=== PATIENT | male | born 1965 | race Two or more races ===

== ENCOUNTER 2025-07-20 03:58 | Emergency (ER) | payer SELFPAY ==
[2025-07-20 03:59] VITALS: BP 165/98; PULSE 115; RESP 22; TEMP 36.7; O2SAT 95
[2025-07-20 04:00] VITALS: BMI 60.8
--- NOTE | 2025-07-20 04:12 | EDNOTE_ITS ---
ED Extremity Problem RME/HPI General Chief complaint: Skin/Abscess/Foreign Body Stated complaint: PAIN IN RIGHT LEG, RED AND SWOLLEN Time Seen by Provider: 07/20/25 04:19 Arrival date/time: 07/20/25 03:58 RME / HPI RME / HPI Narrative: See MDM for Dr. Conde's HPI Documentation. Related Data Previous Rx's ?Medication ?Instructions ?Recorded lisinopril 40 mg tablet 40 mg PO QDAY #30 tabs 11/02 metformin 500 mg tablet 500 mg PO BID #60 tabs 11/02 hydroxyzine HCl 50 mg tablet 50 mg PO Q6H PRN anxiety #20 tabs 11/11/23 Allergies Allergy/AdvReac Type Severity Reaction Status Date / Time No Known Allergies Allergy Verified 07/20/25 03:59 Review of Systems Review of Systems Systems Reviewed: All systems reviewed, normal except as documented Past Medical History Past Medical History CARDIAC: Positive Hypertension ENDOCRINE: Positive Diabetes Mellitus Type 2 PSYCHO/SOCIAL: Positive Recreational Drug Use Social History SUBSTANCE USE: marijuana ED Exam Narrative Physical exam: See [facility] for Dr. Conde's Physical Exam Documentation. Course Quality Measures none Orders Category Date Time Status CT Screening NOW Care 07/20/25 04:21 Active EKG (ED ONLY) *Do not use* NOW Care 07/20/25 04:20 Completed Saline [Insert IV] NOW Care 07/20/25 04:[address] angio chest Stat Exams 07/20/25 04:21 Ordered EKG (ED Only) Stat Exams 07/20/25 04:20 Draft US venous doppler LE BI Stat Exams 07/20/25 04:21 Ordered XR chest 1V portable Stat Exams 07/20/25 04:21 Taken Alcohol, Blood Medical Stat Lab 07/20/25 04:43 Ordered BNP [B-Type Natriuretic Peptide] Stat Lab 07/20/25 04:33 Received Bilirubin,Direct Stat Lab 07/20/25 04:33 Received CBC Stat Lab 07/20/25 04:33 Received CK [Creatine Kinase] Stat Lab 07/20/25 04:33 Received CMP [Comprehensive Metabolic Panel] Stat Lab 07/20/25 04:33 Received CRP [C-Reactive Protein] Stat Lab 07/20/25 04:33 Received D-Dimer Stat Lab 07/20/25 04:33 Received Drug Screen,Urine Stat Lab 07/20/25 04:43 Ordered ESR [Sed Rate (ESR)] Stat Lab 07/20/25 04:33 Received Hemoglobin A1C [Glycohemoglobin w (eAG)] Stat Lab 07/20/25 04:33 Received Magnesium Stat Lab 07/20/25 04:33 Received PT [Prothrombin Time with INR] Stat Lab 07/20/25 04:33 Received PTT [Partial Thromboplastin Time] Stat Lab 07/20/25 04:33 Received Procalcitonin Stat Lab 07/20/25 04:33 Received TSH [Thyroid Stimulating Hormone] Stat Lab 07/20/25 04:33 Received Troponin I Stat Lab 07/20/25 04:33 Received UA, C/S IF [Urinalysis, C/S if Indicated] Stat Lab 07/20/25 04:43 Ordered VBG [Venous Blood Gas] Stat Lab 07/20/25 04:33 Received Metoprolol Tartrate [Lopressor] Med 07/20/25 04:19 Discontinued 100 mg PO X1 ONE Vital Signs Vital signs: Vital Signs Temperature 98.1 F 07/20/25 03:59 Pulse Rate 115 H 07/20/25 03:59 Respiratory Rate 22 H 07/20/25 03:59 Blood Pressure 165/98 H 07/20/25 03:59 Pulse Oximetry (%) 95 07/20/25 03:59 Oxygen Delivery Method Room Air 07/20/25 03:59 Extremity Problem MDM Narrative MDM Narrative:: This section includes all my notes and documentations, including HPI, PE, and ED course. Hai Conde MD HPI: 60 y/o male with Hx of HTN and Type II DM (no meds for a month) here with a week history of right lower leg pain and swelling and redness and warmth. No recent injury. He also reports more shortness of breath with exertion. No chest pain. No headache or dizziness. No palpitations. No unusual cough. No fever or chills. No other complaints. ROS: All negative except as documented in HPI. Physical Exam: General: Alert and oriented. No acute distress when remaining still. High BP noted. Eyes: Conjunctivae and lids clear. ENT: No nasal congestion. Neck: Supple. No JVD. Heart: Tachycardia with regular rhythm Lungs: No respiratory distress. Decreased air movement. No significant rhonchi, wheezing, rales. Abdomen: Soft and nontender. Legs: Right lower leg edema/erythema/calor/tenderness noted. Skin: Warm and dry. Neuro: Alert and oriented X 3. I ordered oral metoprolol 100 mg and diagnostic tests. At 6 AM on 07/20/2025, the care of the patient was transferred to Dr. Sanchez. Hai Conde MD Patient data External records reviewed:: [facility] previous records (Reviewed prior ED records from 06/06/24. Patient was seen for Cellulitis of leg.) Clinical information provided by:: patient Social determinants that could affect healthcare access:: substance use (Marijuana) Patient has the following chronic illnesses:: HTN, Type II DM, Recreational Drug Use How is presenting disease/condition affected by chronic disease/condition?: exacerbated by Evaluation data The following diagnostics were reviewed and interpreted by me:: lab results, radiology exam(s) and EKG tracing(s) (My interpretation of the EKG is: Sinus tachycardia (111 bpm) with nonspecific ST-T changes. Hai Conde MD) Lab and/or radiology exams considered but not ordered:: None Interpretation Summary: Complete diagnostic tests are pending. Medications / Prescriptions Medications or Prescriptions considered but not ordered:: None Medication administrations:: Medication Administration History Discontinued Medications Metoprolol Tartrate (Metoprolol Tartrate 25 Mg Tablet) 100 mg PO X1 ONE Stop: 07/20/25 04:20 I ordered oral metoprolol 100 mg. Consultations Consultation(s) initiated? (list below): No Diagnosis Extremity Problem Differential Diagnosis: cellulitis, superficial thrombophlebitis, lower extremity edema, deep vein thrombosis of lower extremity and other (PE) Most likely diagnosis given after review of the tests above:: Complete diagnostic tests are pending. Admission Indicated Admission indicated?: not indicated Explain why admission is indicated or not indicated:: Complete diagnostic tests are pending. Admission Request Was there a request for admission?: No Disposition Plan Disposition Plan: other (specify) ( At 6 AM on 07/20/2025, the care of the patient was transferred to Dr. Sanchez.) Discharge Plan Prescriptions/Referrals Prescriptions/Med Rec: No Action lisinopril 40 mg tablet 40 mg PO QDAY Qty: 30 0RF metformin 500 mg tablet 500 mg PO BID Qty: 60 0RF hydroxyzine HCl 50 mg tablet 50 mg PO Q6H PRN (Reason: anxiety) Qty: 20 0RF Problem List Clinical Impression: Pain in right lower leg, Shortness of breath, Tachycardia, Hypertension Patient/Caregiver Discharge Instructions Print Language: Italian
--- NOTE | 2025-07-20 04:20 | EKG_ITS ---
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
--- NOTE | 2025-07-20 04:21 | XR_ITS ---
EXAMINATION: PA chest single view TECHNIQUE: Upright PA chest single view Date and time: July 20, 2025, 0421 hours, comparison 06/06/2024 INDICATIONS: Shortness of breath today. FINDINGS: Minimal prominence left ventricle Mild parenchymal disease in the left lower lung zone obscuring detail left cardiac contour Right lung clear Mild prominence pulmonary vasculature IMPRESSION: Mild opacity obscuring detail of the left cardiac contour, differential would include scarring versus pneumonia in the lingular segment left upper lobe, consider lateral chest view follow-up
[2025-07-20 04:42] LABS: Base Excess, Venous 5 (-3-3); O2 Saturation, Venous 69 % (96-97); PCO2, Venous 48 mmHg (36-56); PO2, Venous 34 mmHg (15-58); pH, Venous 7.42 (7.33-7.66)
[2025-07-20 04:43] LABS: Basophils # (Auto) 0.1 Thou/mm3 (0.0-0.2); Basophils % (Auto) 1 % (0-2.5); Eosinophils # (Auto) 0.2 Thou/mm3 (0.0-0.5); Eosinophils % (Auto) 3 % (0-10); Hematocrit 45.7 % (41.0-53.0); Hemoglobin 15.4 g/dL (13.5-16.0); Immature Granulocytes Auto 0.02 Thou/mm3 (0.00-0.00); Lymphocytes # (Auto) 2.3 Thou/mm3 (1.0-4.8); Lymphocytes % (Auto) 31 % (10-50); Mean Corpuscular HGB Conc 33.7 g/dl (31.0-37.0); Mean Corpuscular Hemoglobin 29.7 pg (25.0-35.0); Mean Corpuscular Volume 88 fL (80-100); Monocytes # (Auto) 0.5 Thou/mm3 (0.0-0.8); Monocytes % (Auto) 7 % (0-12); Neutrophils # (Auto) 4.4 Thou/mm3 (1.8-7.7); Neutrophils % (Auto) 59 % (37-80); Nucleated Red Blood Cell # 0.00 Thou/mm3 (0.00-0.00); Nucleated Red Blood Cell % 0 /100 WBC (0); Platelet Count 226 Thou/mm3 (140-440); RDW Standard Deviation 42.1 fL (35.1-43.9); Red Blood Count 5.19 Miln/mm3 (4.50-5.90); White Blood Count 7.5 Thou/mm3 (3.8-10.6)
[2025-07-20 04:44] VITALS: BP 171/103; PULSE 110
[2025-07-20] MEDS: METOPROLOL TARTRATE 25 MG TABLET 100 MG PO (04:44)
[2025-07-20 04:51] LABS: Sed Rate (ESR) 30 mm/hr (0-20)
[2025-07-20 04:58] LABS: Glucose Estimated Average 212 mg/dL (80-131); Hemoglobin A1C 9.0 % Hgb (4.8-6.0); INR 1.0 (0.9-1.3); Partial Thromboplastin Time 25.9 Seconds (22.0-36.0); Prothrombin Time 10.3 Seconds (9.0-12.2)
[2025-07-20 05:00] LABS: B-Type Natriuretic Peptide 20 pg/mL (0-100)
[2025-07-20 05:01] LABS: D-Dimer < 250 ng/mL (<600)
--- NOTE | 2025-07-20 05:03 | XR_ITS ---
Examination: Duplex scan of the lower extremity, unilateral right Date and time of exam: July 20, 2025, 0504 hours INDICATIONS: Right leg swelling and edema this week Technique: Duplex scan of the extremity veins using B-mode/grayscale imaging and Doppler spectral analysis and color flow Attention is directed to internal echogenicity, compression and augmentation involving these veins, color flow assessment, spectral analysis Findings: Major deep venous structures in the extremity demonstrate normal course and caliber. There is no evidence of deep vein thrombosis. Normal color flow and spectral analysis Impression: Negative for DVT..
[2025-07-20 05:07] LABS: Alanine Aminotransferase 17 U/L (10-49); Albumin, Serum 4.7 gm/dL (3.5-5.0); Albumin/Globulin Ratio 1.9 (1.2-2.2); Alkaline Phosphatase 111 U/L (46-116); Anion Gap 7 (7-16); Aspartate Amino Transferase 18 U/L (0-34); BUN/Creatinine Ratio 13 Ratio (12-20); Bilirubin,Direct 0.3 mg/dL (0.0-0.3); Bilirubin,Total 0.9 mg/dL (0.3-1.2); Blood Urea Nitrogen 12 mg/dL (9-23); C-Reactive Protein 1.0 mg/dL (0.0-0.9); Calcium 9.5 mg/dL (8.3-10.6); Calcium (Corrected) 9.5 mg/dL (8.5-10.1); Carbon Dioxide 31.5 mMol/L (20.0-31.0); Chloride 100 mMol/L (98-107); Creatine Kinase 78 U/L (34-171); Creatinine (Component) 0.9 mg/dL (0.6-1.3); Estimated Creatinine Clearance 143.8 mL/min (>60); Globulin 2.5 gm/dL (2.3-3.5); Glucose 240 mg/dL (74-106); Magnesium 1.6 mg/dL (1.6-2.6); Osmolality,Calculated 283 (275-295); Potassium 3.9 mMol/L (3.4-5.1); Sodium 138 mMol/L (136-145); Thyroid Stimulating Hormone 1.88 uIU/mL (0.55-4.78); Total Protein 7.2 gm/dL (5.7-8.2); Troponin I < 0.020 ng/mL (0.0-0.045); eGFR > 60 See Note
[2025-07-20 05:09] LABS: Procalcitonin 0.06 ng/ml (0.0-0.49)
--- NOTE | 2025-07-20 05:30 | PD.EDADDENDU ---
Emergency Room Addendum Addendum Narrative: Because of all diagnostic test results return prior to next provider, I was able to finished up the patient care. HPI: 60 y/o male with Hx of HTN and Type II DM (no meds for a month) here with a week history of right lower leg pain and swelling and redness and warmth. No recent injury. He also reports more shortness of breath with exertion. No chest pain. No headache or dizziness. No palpitations. No unusual cough. No fever or chills. No other complaints. ROS: All negative except as documented in HPI. Physical Exam: General: Alert and oriented. No acute distress when remaining still. High BP noted. Eyes: Conjunctivae and lids clear. ENT: No nasal congestion. Neck: Supple. No JVD. Heart: Tachycardia with regular rhythm Lungs: No respiratory distress. Decreased air movement. No significant rhonchi, wheezing, rales. Abdomen: Soft and nontender. Legs: Right lower leg edema/erythema/calor/tenderness noted. Skin: Warm and dry. Neuro: Alert and oriented X 3. I reviewed all diagnostic test results: My interpretation of the EKG is sinus rhythm with no acute ST?T changes. My interpretation of the chest x-ray is NAD, official radiology reports pending. My review of the right leg US report is no DVT. Blood tests remarkable for Glu 240 and Hgb A1C 9%. At this point, diagnoses include: Right lower leg cellulitis Hypertension Type 2 diabetes Treatment here included: Oral metoprolol 100 mg Cefazolin 2 g IV BP and HR improved. Recommended more outpatient care. Based on my best medical judgment, made decision no further evaluation or treatment indicated at this time.? Patient understands and agrees to the discharge instructions customized and printed, see below. Discharge Instructions from Dr. Conde printed for you: 1. After evaluation, your diagnoses include right lower leg infection and high BP and type 2 diabetes. 2. Take Keflex for your right lower leg infection. When resting or sitting or sleeping, elevate your ankle/feet above your waist level. 3. If you want to live longer and without disability, we need to lower your BP and slow your heart rate and treat your diabetes. 4. Take metoprolol and Janumet as prescribed. 5. See a private doctor on 07/21/2025 for recheck and further care. Ask for help until you are completely better. Ask to help you stay healthy, with good management of your BP and diabetes and with regular physical exam and health maintenance. Ask to review all test results and official radiology reports, to make sure you receive all necessary follow-ups and monitoring. 6. Seek immediate medical care with worsening or with any concerns. Hai Conde MD
[2025-07-20] MEDS: ceFAZolin/D5W 2 GM IV 2 GM/100 ML BAG IV (05:39)
[2025-07-20 05:42] VITALS: BP 159/101; PULSE 78; RESP 18
[2025-07-20 06:15] VITALS: RESP 20
== END 2025-07-20 06:16 | disposition home or self-care (01) ==
PROVIDERS: Emergency Provider Emergency Medicine; PCP Family Medicine
DX: L02.415 Cutaneous abscess of right lower limb (principal); E11.9 Type 2 diabetes mellitus without complications; I10 Essential (primary) hypertension; Z79.84 Long term (current) use of oral hypoglycemic drugs
CPT/HCPCS: 36415; 71045; 80053; 80307; 80320; 81001; 82248; 82550; 82803; 83036; 83735; 83880; 84145; 84443; 84484; 85025; 85379; 85610; 85652; 85730; 86140; 93005; 93971; 96365; 99284; J0689; A9270; G0480